=== PATIENT | female | born 1970 | race Caucasian/White ===

== ENCOUNTER 2023-12-18 12:59 | Emergency (ER) | payer OTHER, SELFPAY ==
--- NOTE | ~2023-12-18 | XR_ITS ---
EXAMINATION: XR shoulder LT min 2V INDICATION: Left shoulder pain TECHNIQUE: Four views of the left shoulder are obtained on five radiographs. COMPARISON: 10/24/2014 FINDINGS: Normal alignment. No fracture. Glenohumeral and acromioclavicular joint spaces are normal. Soft tissues are unremarkable. Surgical changes are noted in the cervical spine. IMPRESSION: 1. No acute osseous abnormality. Reviewed, dictated and finalized at location B. FING COORDINATOR
[2023-12-18 13:17] VITALS: BP 135/87; PULSE 71; RESP 16; TEMP 36.5; O2SAT 100
--- NOTE | 2023-12-18 13:52 | ED.UPPEXIN ---
HPI - Extremity Injury (Upper) General Chief Complaint: Extremity Injury, Upper Stated Complaint: Left Arm Pain Time Seen by Provider: 12/18/23 13:52 Source: patient Mode of arrival: ambulatory Limitations: no limitations History of Present Illness HPI narrative: 53-year-old female presents with pain to left shoulder. Also reports abrasions to ring and little finger of left hand. Patient reports last night around 9:00 p.m. her dog pulled her while walking out of sore. States that she held on to leash and her left shoulder hit on to door frame and leash hit against fingers. Normal range of motion to left shoulder. Patient concern for shoulder injury, reports pain worse today. All systems reviewed and negative except as noted above. Related Data Home Medications Medication Instructions Recorded Confirmed hydrochlorothiazide 12.5 mg tablet 12.5 mg PO DAILY 12/18/23 12/18/23 Allergies Allergy/AdvReac Type Severity Reaction Status Date / Time ciprofloxacin Allergy Rash Verified 12/18/23 13:54 UNKNOWN ANTIBIOTIC FOR UTI Allergy Other Uncoded 12/18/23 13:54 SHE DOESN'T DO WELL WITH AdvReac Other Uncoded 12/18/23 13:55 PAIN MEDS Review of Systems Review of Systems: CONSTITUTIONAL: Denies fever, chills, or sweats. EYES: Denies visual changes, redness, or discharge. ENT: Denies rhinorrhea, congestion, sore throat, or otalgia. CARDIOVASCULAR: Denies chest pain, palpitations, or edema. RESPIRATORY: Denies cough or dyspnea. GASTROINTESTINAL: Denies abdominal pain, nausea, vomiting, or diarrhea. GENITOURINARY: Denies dysuria or hematuria. SKIN: Denies rash or itching. Abrasion to ring and little finger of left hand. MUSCULOSKELETAL: Denies back pain, joint pain, or myalgia. Left shoulder pain. NEUROLOGIC: Denies headache, numbness, or weakness. PSYCHIATRIC: Denies anxiety or depression. All other systems reviewed are negative, except as documented in HPI. PMFSH Comments At time of signature, agree with nursing past medical, surgical, social and family history. There is no relevant family history pertinent to the presenting complaint. Exam Narrative: GENERAL: This is a well-nourished, well-developed patient, in no apparent distress. HEAD: normocephalic, atraumatic. EYES: PERRL. Sclera clear/white. Vision is grossly intact. EARS: External ears normal NOSE: External nose normal NECK: Neck supple, non-tender without lymphadenopathy, masses or thyromegaly. CARDIOVASCULAR: Regular rate and rhythm without murmurs, gallops, or rubs. RESPIRATORY: Clear to auscultation. Breath sounds equal bilaterally. No wheezes, rales, or rhonchi. SKIN: warm, Dry, intact with no suspicious lesions or rash, good texture and turgor. Abrasions and swelling to distal aspect ring and little finger left hand without active bleeding. NEURO: awake, alert, and oriented to person, place and time. There were no obvious focal neurologic abnormalities. EXTREMITIES: No effusion, or edema noted. Tenderness to anterior aspect left shoulder. Range of motion normal. Negative drop-arm test. Course Course Level of Care: Express Care Visit Vital Signs Vital signs: Vital Signs Temperature 36.5 C 12/18/23 13:17 Pulse Rate 71 12/18/23 13:17 Respiratory Rate 16 12/18/23 13:17 Blood Pressure 135/87 12/18/23 13:17 Pulse Oximetry 100 12/18/23 13:17 Oxygen Delivery Room Air 12/18/23 13:17 Temperature 36.5 C 12/18/23 13:17 Pulse Rate 71 12/18/23 13:17 Respiratory Rate 16 12/18/23 13:17 Blood Pressure 135/87 12/18/23 13:17 Pulse Oximetry 100 12/18/23 13:17 Oxygen Delivery Room Air 12/18/23 13:17 reviewed MDM - Extremity Injury (Upper) MDM Narrative Medical decision making narrative: Patient is aware of diagnosis, understands and agrees to treatment plan. Anticipatory guidance given. Patient agrees to follow-up as directed and is aware of reasons to seek care at the emergency depar
== END 2023-12-18 14:00 | disposition home or self-care (01) ==
PROVIDERS: Emergency Provider Nurse Practitioner Family; PCP Family Medicine
DX: S40.012A Contusion of left shoulder, initial encounter (principal); S60.415A Abrasion of left ring finger, initial encounter; S46.912A Strain of unspecified muscle, fascia and tendon at shoulder and upper arm level, left arm, initial encounter; W19.XXXA Unspecified fall, initial encounter
CPT/HCPCS: 73030; 99213; G0463